=== PATIENT | male | born 1990 | race Caucasian/White ===

== ENCOUNTER 2023-07-11 17:26 | Emergency (ER) | payer OTHER, SELFPAY ==
[2023-07-11 17:31] VITALS: BP 140/86; PULSE 84; RESP 16; TEMP 36.4; O2SAT 99; BMI 27.2
[2023-07-11 17:54] LABS: Basophils Absolute Auto 0.1 10^3/uL (0.0-0.1); Basophils Percent Auto 0.8 % (0.2-2.0); Eosinophils Percent Auto 0.1 % (0.9-7.0); Hematocrit 49.2 % (42.0-54.0); Hemoglobin 17.3 g/dL (14.0-18.0); Immature Granulocytes Pct Auto 0.7 % (0.0-0.5); Lymphocytes Absolute Auto 1.3 10^3/uL (1.2-3.8); Lymphocytes Percent Auto 9.3 % (20.5-60.0); Mean Corpuscular HGB Conc 35.2 g/dL (29.9-35.2); Mean Corpuscular Hemoglobin 31.6 pg (25.9-34.0); Mean Corpuscular Volume 89.9 fL (80.0-94.0); Mean Platelet Volume 10.4 fL (9.5-13.5); Monocytes Absolute Auto 0.6 10^3/uL (0.3-0.8); Neutrophils Absolute Auto 12.2 10^3/uL (1.4-6.5); Neutrophils Percent Auto 85.1 % (43.0-75.0); Platelet Count 392 10^3/uL (150-450); Red Blood Count 5.47 10^6/uL (4.70-6.10); Red Cell Distribution Width 12.7 % (11.0-15.0); White Blood Count 14.3 10^3/uL (4.0-11.0)
[2023-07-11] MEDS: 0.9 % SODIUM CHLORIDE 1,000 ML 999 ML IV (17:55)
[2023-07-11] MEDS: ONDANSETRON PF 4 MG/2 ML VIAL IV (17:59)
--- NOTE | 2023-07-11 18:14 | CT_ITS ---
The [address] [address] Patient Name: RAMEZ MCDOWELL MRN: [id number] date: 1990 Sex: M Assigned Patient Location: ER Current Patient Location: ER Accession/Order Number: [id number] Exam Date: 07/11/2023 18:36 Report Date: 07/11/2023 20:08 At the request of: ASYA LA Procedure: CT abdomen pelvis w con EXAM: CT abdomen pelvis w con, 07/11/2023 HISTORY: midline abdominal pain w vomiting COMPARISON: None. TECHNIQUE: Contrast CT scan of the abdomen and pelvis was performed following intravenous injection of iodine contrast. Dose reduction techniques were achieved by using automated exposure control and/or adjustment of mA and/or kV according to patient size and/or use of iterative reconstruction technique. FINDINGS: Mild hepatic steatosis without focal lesion. Patent portal venous system. The gallbladder and bile ducts are unremarkable. The spleen, pancreas and both adrenal glands are unremarkable. Uniform enhancement of both kidneys without focal lesion. No hydronephrosis or hydroureter. The urinary bladder is unremarkable. Prostate gland is not enlarged. No bowel loop dilatation or bowel wall thickening. Few diverticula are seen in the colon without evidence of diverticulitis. Unremarkable appendix. No free fluid in the peritoneal cavity. No abdominal or pelvic lymphadenopathy. Unremarkable abdominal aorta and IVC. Unremarkable osseous structures. Scans through the lung bases are clear. CT/CT abdomen pelvis w con IMPRESSION: 1. No acute findings in the abdomen or pelvis. 2. Mild hepatic steatosis. 3. Mild colonic diverticulosis without diverticulitis. Electronically authenticated by: DONOVAN BARFIELD Date: 07/11/2023 20:08
--- NOTE | 2023-07-11 18:14 | ED_ITS ---
HPI - Nausea/Vomiting/Diarrhea General Chief complaint: Nausea/Vomiting/Diarrhea Stated complaint: VOMITING Time Seen by Provider: 07/11/23 17:46 Source: patient Mode of arrival: walk-in History of Present Illness HPI Narrative: patient developed midline abdominal pain 3 days ago and this morning developed nausea and vomiting with a small amount of liquid stool. Pain is non-radiating and localized to the midline from epigastrium to suprapubic area. No flank pain or back pain. He previously had rectal bleeding and had an ED evaluation but did not follow up for colonoscopy, which was recommended. Related Data Home Medications Medication Instructions Recorded Confirmed bupropion HCl 150 mg 24 hr tablet, 150 mg PO DAILY 07/11/23 07/11/23 extended release Allergies Allergy/AdvReac Type Severity Reaction Status Date / Time No Known Drug Allergies Allergy Verified 07/11/23 17:31 Exam Narrative Exam Narrative: Nurses notes and vital signs reviewed and patient is not hypoxic. afebrile General: Well-appearing and in no apparent distress. Skin: Warm, dry, no pallor noted. No rash. Head: Normocephalic, atraumatic. Eye: Pupils are equal, round and EOMI. No scleral icterus. Cardiovascular: Regular Rate and Rhythm without murmur, gallop or rub. Respiratory: No accessory muscle use or respiratory distress. Lungs are clear to auscultation, no wheezing, rales or rhonchi Back: No CVA tenderness Musculoskeletal: normal ROM GI: Abdomen is soft, non-distended. Normal bowel sounds. Epigastric, umbilical and suprapubic tenderness to palpation. No rebound, guarding, or rigidity noted. Neurological: A&O x4. No cranial nerve dysfunction observed. No truncal ataxia. Moves all extremities. Sensation intact. Psychiatric: Cooperative and interactive. Normal mood and affect. Constitutional Vital Signs, click to edit/add: Last Vital Signs Temp 97.6 F 07/11/23 17:31 Pulse 84 07/11/23 17:31 Resp 16 07/11/23 17:31 BP 140/86 07/11/23 17:31 Pulse Ox 99 07/11/23 17:31 Course Vital Signs Vital signs: Vital Signs Temperature 97.6 F 07/11/23 17:31 Pulse Rate 84 07/11/23 17:31 Respiratory Rate 16 07/11/23 17:31 Blood Pressure 140/86 07/11/23 17:31 Pulse Oximetry 99 07/11/23 17:31 Temperature 97.6 F 07/11/23 17:31 Pulse Rate 84 07/11/23 17:31 Respiratory Rate 16 07/11/23 17:31 Blood Pressure 140/86 07/11/23 17:31 Pulse Oximetry 99 07/11/23 17:31 MDM - Nausea/Vomiting/Diarrhea MDM Narrative Medical decision making narrative: peripheral IV established and blood drawn and sent for testing. Patient received normal saline IV fluid and IV Zofran. Also ordered that any diarrhea that he produced while in the ED be sent for testing. He was also sent for CT scanning of the abdomen and pelvis with contrast due to 3 days of midline abdominal pain. WBC 14k. CMP unremarkable. Lipase negative. CT scan pending. Patient signed out to Dr Madrid at 7pm shift change to review the radiologist's CT report and determine disposition for the patient. Lab Data Labs: Lab Results 07/11/23 07/11/23 Range/Units 17:35 18:03 WBC 14.3 H (4.0-11.0) 10^3/uL RBC 5.47 (4.70-6.10) 10^6/uL Hgb 17.3 (14.0-18.0) g/dL Hct 49.2 (42.0-54.0) % MCV 89.9 (80.0-94.0) fL MCH 31.6 (25.9-34.0) pg MCHC 35.2 (29.9-35.2) g/dL RDW 12.7 (11.0-15.0) % Plt Count 392 (150-450) 10^3/uL MPV 10.4 (9.5-13.5) fL Neut % (Auto) 85.1 H (43.0-75.0) % Lymph % (Auto) 9.3 L (20.5-60.0) % [place] % (Auto) 4.0 (1.7-12.0) % Eos % (Auto) 0.1 L (0.9-7.0) % Baso % (Auto) 0.8 (0.2-2.0) % Neut # (Auto) 12.2 H (1.4-6.5) 10^3/uL Lymph # (Auto) 1.3 (1.2-3.8) 10^3/uL [place] # (Auto) 0.6 (0.3-0.8) 10^3/uL Eos # (Auto) 0.0 (0.0-0.7) 10^3/uL Baso # (Auto) 0.1 (0.0-0.1) 10^3/uL Abs Immat Gran (auto) 0.10 H (0.00-0.03) 10^3/uL Imm/Tot Granulo (auto) 0.7 H (0.0-0.5) % Sodium 141 (136-145) mmol/L Potassium 4.0 (3.5-5.1) mmol/L Chloride 103 (98-107) mmol/L Carbon Dioxide 23.4 (21.0-32.0) mmol/L Anion Gap 18.6 BUN 12.0 (7.0-18.0) mg/dL Creatinine 1.03 (0.70-1.30) mg/dL Est GFR ( Amer) >60 (>=60) Est GFR (Non-Af Amer) >60 (>=60) BUN/Creatinine Ratio 11.7 Glucose 95 (74-106) mg/dL Calcium 9.4 (8.5-10.1) mg/dL Total Bilirubin 0.4 (0.2-1.0) mg/dL AST 17 (15-37) U/L ALT 36 (16-63) U/L Alkaline Phosphatase 94 (46-116) U/L Total Protein 8.2 (6.4-8.2) g/dL Albumin 4.4 (3.4-5.0) g/dL Globulin 3.8 g/dL Albumin/Globulin Ratio 1.2 Lipase 25.0 L (73.0-393.0) U/L Discharge Plan Discharge Chief Complaint: Nausea/Vomiting/Diarrhea Clinical Impression: Vomiting and diarrhea, Abdominal pain Patient Disposition: Still a Patient Prescriptions / Home Meds: No Action bupropion HCl 150 mg tablet extended release 24 hr 150 mg PO DAILY Referrals: Norberto Abraham MD [Primary Care Provider] - 1 week
[2023-07-11 18:22] LABS: Alanine Aminotransferase 36 U/L (16-63); Albumin Globulin Ratio 1.2; Albumin Level 4.4 g/dL (3.4-5.0); Alkaline Phosphatase 94 U/L (46-116); Anion Gap 18.6; Aspartate Amino Transferase 17 U/L (15-37); BUN Creatinine Ratio 11.7; Bilirubin Total 0.4 mg/dL (0.2-1.0); Calcium 9.4 mg/dL (8.5-10.1); Carbon Dioxide 23.4 mmol/L (21.0-32.0); Chloride 103 mmol/L (98-107); Estimated GFR (African America >60 (>=60); Estimated GFR (Non-African Ame >60 (>=60); Globulin 3.8 g/dL; Glucose 95 mg/dL (74-106); Sodium 141 mmol/L (136-145); Total Protein 8.2 g/dL (6.4-8.2)
[2023-07-11] MEDS: HYOSCYAMINE SULFATE 0.125 MG TAB.SUBL SL (18:56)
[2023-07-11] MEDS: KETOROLAC TROMETHAMINE 30 MG/ML VIAL IVP (20:32)
[2023-07-11 21:20] VITALS: BP 136/94; PULSE 67; RESP 16; O2SAT 98
== END 2023-07-11 21:22 | disposition home or self-care (01) ==
PROVIDERS: Emergency Provider Emergency Medicine; PCP Family Medicine
DX: R10.9 Unspecified abdominal pain (principal); R19.7 Diarrhea, unspecified; R11.10 Vomiting, unspecified
CPT/HCPCS: 36415; 74177; 80053; 83690; 85025; 87507; 96361; 96374; 96375; 99285; Q9967

== ENCOUNTER 2023-08-03 08:39 | Outpatient (OUT) | payer OTHER, SELFPAY | END 2023-08-03 08:40 | disposition home or self-care (01) | LOC: PST 08:39 | PROVIDERS: PCP Family Medicine; Visit Provider Surgery | DX: Z01.818 Encounter for other preprocedural examination (principal); K62.5 Hemorrhage of anus and rectum; R10.13 Epigastric pain ==

== ENCOUNTER 2023-08-05 09:20 | Day surgery (SDC) | payer OTHER, SELFPAY ==
--- NOTE | 2023-08-05 | OP_ITS ---
OPERATION DATE: ??08/05/2023 PREOPERATIVE DIAGNOSIS:? Epigastric abdominal pain, nausea and vomiting, diarrhea, rectal bleeding. POSTOPERATIVE DIAGNOSIS: Antral gastritis, rectal polyp. PROCEDURE:? EGD with antral biopsy x2 and colonoscopy to cecum with random sigmoid biopsies as well as cold forceps polypectomy x1 for rectal polyp. SURGEON:? Gage Gregorio M.D. ANESTHESIA:? Monitored anesthesia care. ESTIMATED BLOOD LOSS:? Less than 1 mL. INDICATIONS AND CONSENT:? Patient is a 32-year-old male with history of epigastric pain, intermittent nausea, vomiting, loose stools, as well as blood in the stools.? Indications, risks, benefits, alternatives of proceeding with EGD and colonoscopy were explained extensively to the patient, including the risks of bleeding, aspiration, esophageal/gastric/duodenal or colonic perforation or anesthetic complications. ?All of his questions were answered.? Informed consent was obtained. PROCEDURE:? Patient brought to the operating room, placed in the left lateral decubitus position.? Monitored anesthesia care was provided.? Bite block was placed in the patient?s mouth.? Scope was inserted into the oropharynx.? Under direct visualization, it was advanced into the esophagus, past the cricopharyngeus, down to the stomach.? The stomach was insufflated with air.? The pylorus was traversed down to the descending portion of the duodenum.? There was no evidence of duodenitis or ulceration.? There was no scarring within the pyloric channel.?? Scope was pulled back into the stomach.? There was noted to be antral gastritis with some superficial irritation.? There was minimal oozing, no active bleeding.? The scope was retroflexed.? There was no significant hiatal hernia.? Multiple biopsies were obtained of the antrum with cold biopsy forceps with good hemostasis.? The GE junction was noted at approximately 40 cm.? There was no distal esophagitis or Mendoza?s changes. Remainder of the esophagus was unremarkable.? The scope was then withdrawn. ?Patient was then positioned for colonoscopy.? Rectal exam was performed, which showed no masses or blood.? The scope was then inserted into the anal canal.? Under direct visualization, it was advanced to the cecum where cecal markings were clearly identified.? There was noted to be a good prep.? Upon withdrawal of the scope, mucosal surfaces were carefully examined.? There were no mass lesions or polyps.? No inflammatory changes or ulcerations.? No significant diverticulosis.? Random biopsies were obtained of the sigmoid colon with the cold biopsy forceps due to the loose stools.? Within the rectum, there was noted to be a 3 mm sessile polyp that was removed with cold biopsy forceps with good hemostasis.? There was no significant hemorrhoidal disease.? The scope was then withdrawn.? The patient tolerated procedure well, was sent to recovery room in good condition. f/u colonoscopy will depend on pathology results. HELEN
[2023-08-05 09:31] VITALS: BP 150/92; PULSE 98; RESP 18; TEMP 36.2; O2SAT 98; BMI 29.3
[2023-08-05] MEDS: LACTATED RINGER'S SOLUTION 1,000 ML 50 ML IV (09:35)
[2023-08-05 11:36] VITALS: BP 106/66; PULSE 83; RESP 16; TEMP 36.3; O2SAT 99
[2023-08-05 11:50] VITALS: BP 126/93; PULSE 78; RESP 16; O2SAT 99
[2023-08-05 12:04] VITALS: BP 112/78; PULSE 78; RESP 16; O2SAT 100
== END 2023-08-05 12:06 | disposition home or self-care (01) ==
PROVIDERS: PCP Family Medicine; Visit Provider Surgery
PROC: (CPT 813; principal; 2023-08-05 10:30)
DX: K62.5 Hemorrhage of anus and rectum (principal); R10.13 Epigastric pain; K29.50 Unspecified chronic gastritis without bleeding; K62.1 Rectal polyp; E66.3 Overweight; Z68.29 Body mass index [BMI] 29.0-29.9, adult; F17.210 Nicotine dependence, cigarettes, uncomplicated; R11.2 Nausea with vomiting, unspecified; R19.7 Diarrhea, unspecified
CPT/HCPCS: 43239; 45380; 88305; 88342; J2704

== ENCOUNTER 2023-11-12 16:32 | Outpatient (OUT) | payer SELFPAY ==
[2023-11-12 17:51] LABS: Basophils Absolute Auto 0.1 10^3/uL (0.0-0.1); Basophils Percent Auto 0.4 % (0.2-2.0); Eosinophils Absolute Auto 0.2 10^3/uL (0.0-0.7); Eosinophils Percent Auto 1.6 % (0.9-7.0); Hematocrit 42.8 % (42.0-54.0); Hemoglobin 14.4 g/dL (14.0-18.0); Immature Granulocytes Abs Auto 0.07 10^3/uL (0.00-0.03); Immature Granulocytes Pct Auto 0.5 % (0.0-0.5); Lymphocytes Absolute Auto 2.4 10^3/uL (1.2-3.8); Lymphocytes Percent Auto 17.3 % (20.5-60.0); Mean Corpuscular HGB Conc 33.6 g/dL (29.9-35.2); Mean Corpuscular Hemoglobin 30.6 pg (25.9-34.0); Mean Corpuscular Volume 91.1 fL (80.0-94.0); Mean Platelet Volume 10.9 fL (9.5-13.5); Monocytes Absolute Auto 1.1 10^3/uL (0.3-0.8); Monocytes Percent Auto 7.9 % (1.7-12.0); Neutrophils Absolute Auto 10.1 10^3/uL (1.4-6.5); Neutrophils Percent Auto 72.3 % (43.0-75.0); Platelet Count 396 10^3/uL (150-450); Red Cell Distribution Width 12.7 % (11.0-15.0); White Blood Count 13.9 10^3/uL (4.0-11.0)
[2023-11-12 17:59] LABS: Partial Thromboplastin Time 26.5 sec (22.3-36.2); Prothrombin Time 9.8 sec (9.0-11.6)
[2023-11-12 18:02] LABS: Erythrocyte Sedimentation Rate 29 mm/hr (<=15)
[2023-11-12 18:03] LABS: INR <0.93
== END 2023-11-12 16:33 | disposition home or self-care (01) ==
PROVIDERS: PCP Family Medicine; Visit Provider Family Medicine
DX: K92.1 Melena (principal)
CPT/HCPCS: 36415; 85025; 85610; 85652; 85730

== ENCOUNTER 2024-10-13 11:20 | Outpatient (OUT) | payer OTHER, SELFPAY ==
--- NOTE | 2024-10-13 11:27 | XR_ITS ---
The [address] [address] Patient Name: RAMEZ MCDOWELL MRN: [id number] date: 1990 Sex: M Assigned Patient Location: LAB Current Patient Location: Accession/Order Number: [id number] Exam Date: 10/13/2024 11:34 Report Date: 10/14/2024 05:48 At the request of: GAIL LOWE Procedure: XR hand RT min 3V PROCEDURE: XR hand RT min 3V, XR wrist RT min 3V HISTORY: Right Hand Pain ; chronic right hand and wrist pain COMPARISON: XR hand right 08/03/2018 FINDINGS: BONES:No fracture, acute abnormality, or significant arthropathy. SOFT TISSUES:No visible soft tissue swelling. EFFUSION:None visible. OTHER: Negative. XR/XR hand RT min 3V IMPRESSION: 1. No acute bone abnormality or significant degenerative changes to account for patient's symptoms. Electronically authenticated by: RACHEL SHOOK Date: 10/14/2024 05:48
--- NOTE | 2024-10-13 11:27 | XR_ITS ---
The [address] [address] Patient Name: RAMEZ MCDOWELL MRN: [id number] date: 1990 Sex: M Assigned Patient Location: LAB Current Patient Location: Accession/Order Number: [id number] Exam Date: 10/13/2024 11:34 Report Date: 10/14/2024 05:48 At the request of: GAIL LOWE Procedure: XR wrist RT min 3V PROCEDURE: XR hand RT min 3V, XR wrist RT min 3V HISTORY: Right Hand Pain ; chronic right hand and wrist pain COMPARISON: XR hand right 08/03/2018 FINDINGS: BONES:No fracture, acute abnormality, or significant arthropathy. SOFT TISSUES:No visible soft tissue swelling. EFFUSION:None visible. OTHER: Negative. XR/XR wrist RT min 3V IMPRESSION: 1. No acute bone abnormality or significant degenerative changes to account for patient's symptoms. Electronically authenticated by: RACHEL SHOOK Date: 10/14/2024 05:48
--- OUTSIDE RECORDS SUMMARY | 2024-10-13 11:45 | XMS_ITS | CCD ---
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 Name Role Phone MISC, DR BAÑUELOS Primary Care Unavailable RADHA ., CATALINO Admitting Unavailable RADHA ., CATALINO Attending Unavailable JUANITO ., ALEJANDRO BENAVIDES Consulting UnavailPRINCE Ramos Consulting Unavailable HOY ., DR REYNOLDS Admitting Unavailable HOY ., DR REYNOLDS Attending Unavailable MISC, DR BAÑUELOS Primary Care Unavailable HOY ., DR REYNOLDS Consulting Unavailable NILL, Gage Richardson Attending Unavailable Hoy, Gail Referring Unavailable NILL, Gage Richardson Attending Unavailable Hoy, Gail Referring Unavailable NILL, Gage R Attending Unavailable NILL, Gage R Attending Unavailable NILL, Gage Richardson Attending Unavailable NILL, Gage Richardson Attending Unavailable Hoy, Gail Referring Unavailable NILL, Gage Richardson Attending Unavailable Allergies Allergy Classification Reported Allergen(s) Allergy Type Date of Onset Reaction(s) Facility (1 source) No Known Medication Allergies; Translations: [No Known Medication Allergies] Propensity to adverse reactions (disorder) [facility] Repository Problems Active Problems Problem Classification Problem Date Documented Da te Episodic/Chronic Headache; including migraine (1 source) Headache; including migraine; Translations: [HEADACHE UNSPECIFIED] Onset: 06-09-2022 Substance-related disorders (1 source) Nicotine dependence, cigarettes, uncomplicated; Translations: [NICOTINE DEPEND CIGARETTES UNCOMP] Onset: 06-09-2022 Chronic Unclassified (1 source) CONTACT W/AND (SUSP) EXPOS COVID-19; Translations: [CONTACT W/AND (SUSP) EXPOS COVID-19] Onset: 06-09-2022 Past or Other Problems Problem Classification Problem Date Documented Da te Episodic/Chronic Conditions associated with dizziness or vertigo (1 source) Dizziness and giddiness; Translations: [DIZZINESS AND GIDDINESS] Onset: 06-09-2022 Episodic Fever of unknown origin (4 sources) Fever, unspecified; Translations: [FEVER UNSPECIFIED] Onset: 06-05-2022 Episodic Nonspecific chest pain (1 source) Chest pain, unspecified; Translations: [CHEST PAIN UNSPECIFIED] Onset: 06-09-2022 Episodic Other aftercare (1 source) Other senior care (current) drug therapy; Translations: [OTH GROUP HOME CURRENT DRUG THERAPY] Onset: 06-09-2022 Episodic Other gastrointestinal disorders (1 source) Diarrhea, unspecified; Translations: [DIARRHEA UNSPECIFIED] Onset: 06-09-2022 Episodic Other lower respiratory disease (1 source) Shortness of breath; Translations: [SHORTNESS OF BREATH] Onset: 06-09-2022 Episodic Other upper respiratory infections (2 sources) Acute upper respiratory infection, unspecified; Translations: [Acute pharyngitis, unspecified] Onset: 06-09-2022 Episodic Syncope (1 source) Syncope and collapse; Translations: [SYNCOPE AND COLLAPSE] Onset: 06-09-2022 Episodic Results Test Name Value Interpretation Reference Range Facility Pathology Noteon 08-12-2023 Pathology Note [id number] #1.00CD:127 [facility] Outside Colonoscopyon 2022 Outside Colonoscopy [id number] #1.00CD:127 [facility] Insurance Correspondenceon 0 07-21-2023 Insurance Correspondence [id number]#1.00CD:127 [facility] Consent for Procedure/Surger yon 07-20-2023 Consent for Procedure/Surgery [id number] #1.00CD:127 [facility] Facesheeton 07-20-2023 Facesheet [id number]#1.00CD:127 [facility] Ambulatory Visit Summaryon 0 07-17-2023 Ambulatory Visit Summary RAMEZ MCDOWELL :1990 Visit Date:07/17/2023 Ambulatory Visit Instructions Your Diagnosis Rectal bleeding Your Care Team Attending Physician - ANTONIETTA GARDUNO, Gage Richardson Primary Care Physician - Gail Lowe MD Referring Physician - Gail Lowe MD This Is Your Medications List Contact prescribing physician if questions or concerns albuterol (Ventolin HFA 90 mcg/inh Aerosol-Adpt) Procedures Performed None. Discharge Vitals Heart Rate (Peripheral) 72 Respiratory Rate 16 Blood Pressure 136/98 Height 177.8 cm Height 70 in Weight 93.4 kg Weight 205.48 lb BMI 29.54 Medications What How Much When Instructions Unchanged albuterol (Ventolin HFA 90 mcg/ inh Aerosol-Adpt) 2 Puffs Inhalation Every 4 hours as needed for Shortness of breath or wheezing Contact prescribing physician if questions or concerns Allergies No Known Allergies No Known Medication Allergies Problems Ongoing - Any problem that you are currently receiving treatment for. BMI 29.0-29.9,adult Over weight Rectal bleeding Tobacco user Normal [facility] ED Note-Physicianon 07-15-20 ED Note-Physician [id number]# 1.00CD:127 Normal [facility] RAD - CT Reporton 07-15-2023 RAD - CT Report [id number] #1.00CD:127 Normal [facility] CBC AUTO DIFFon 03-21-2023 BASO # 0.1 103/ul Normal 0.0-0.1 [facility] Comment on above: Performed By: #### C BC ####[facility] [address] [place] [address]DrRobbin Beltran Basophils/100 WBC (Bld) 0.9 % Normal 0.2-2.0 [facility] Comment on above: Performed By: #### C BC ####[facility] [address] [place] [address]DrRobbin Beltran EO # 0.2 103/ul Normal 0.0-0.7 [facility] Comment on above: Performed By: #### C BC ####[facility] [address] [place] [address]DrRobbin Beltran Eosinophils/100 WBC (Bld) 2.4 % Normal 0.9-7.0 [facility] Comment on above: Performed By: #### C BC ####[facility] [address] [place], [place] [address]Dr. Paola Devin Erythrocyte distribution width (RBC) [Ratio] 12.8 % Normal 11.0-15.0 [facility] Comment on above: Performed By: #### C BC ####[facility] [address] [place], [place] [address]Dr. Paola Beltran Hematocrit (Bld) [Volume fraction] 48.5 % Normal 42.0-54.0 [facility] Comment on above: Performed By: #### C BC ####[facility] [address] [place], [place] [address]Dr. Paola Beltran Hemoglobin (Bld) [Mass/Vol] 16.4 g/dL Normal 14.0-18.0 [facility] Comment on above: Performed By: #### C BC ####[facility] [address] [place], [place] [address]Dr. aPola Devin IG # 0.03 10e3/ul Normal 0.00-0.03 [facility] Comment on above: Performed By: #### C BC ####[facility] [address] [place], [place] [address]Dr. Paola Beltran IG % 0.4 % Normal 0.0-0.5 [facility] Comment on above: Performed By: #### C BC ####[facility] [address] [place], [place] [address]Dr. Paola Beltran LYMPH # 1.5 103/ul Normal 1.2-3.8 [facility] Comment on above: Performed By: #### C BC ####[facility] [address] [place], [place] [address]Dr. Paola Beltran Lymphocytes/100 WBC (Bld) 21.8 % Normal 20.5-60.0 [facility] Comment on above: Performed By: #### C BC ####[facility] [address] [place], [place] [address]DrRobbin Beltran MANUAL DIFF REQ NO Normal [facility] Comment on above: Performed By: #### C BC ####[facility] [address] [place] [address]Dr. Paola Beltran MCH (RBC) [Entitic mass] 30.9 pg Normal 25.9-34.0 [facility] Comment on above: Performed By: #### C BC ####[facility] [address] [place] [address]Dr. Paola Beltran MCHC (RBC) [Mass/Vol] 33.8 g/dL Normal 29.9-35.2 [facility] Comment on above: Performed By: #### C BC ####[facility] [address] [place], [place] [address]DrRobbin Beltran MCV (RBC) [Entitic vol] 91.5 fL Normal 80.0-94.0 [facility] Comment on above: Performed By: #### C BC ####[facility] [address] [place], [place] [address]DrRobbin Beltran MONO # 0.6 103/ul Normal 0.3-0.8 [facility] Comment on above: Performed By: #### C BC ####[facility] [address] [place], [place] [address]DrRobbin Beltran Monocytes/100 WBC (Bld) 9.1 % Normal 1.7-12.0 [facility] Comment on above: Performed By: #### C BC ####[facility] [address] [place], [place] [address]DrRobbin Beltran NEUT # 4.4 103/ul Normal 1.4-6.5 [facility] Comment on above: Performed By: #### C BC ####[facility] [address] [place], [place] [address]DrRobbin Beltran Neutrophils/100 WBC (Bld) 65.4 % Normal 43.0-75.0 [facility] Comment on above: Performed By: #### C BC ####[facility] [address] [place], [place] [address]DrRobbin Beltran Platelet mean volume (Bld) [Entitic vol] 9.8 fL Normal 9.5-13.5 [facility] Comment on above: Performed By: #### C BC ####[facility] [address] [place] [id number]. Paola Beltran PLT 280 103/ul Normal 150-450 [facility] Comment on above: Performed By: #### C BC ####[facility] [address] [place] [id number]. Paola Beltran RBC 5.30 106/ul Normal 4.70-6.10 [facility] Comment on above: Performed By: #### C BC ####[facility] [address] [place] [address]Dr. Paola Beltran WBC 6.7 103/ul Normal 4.0-11.0 [facility] Comment on above: Performed By: #### C BC ####[facility] [address] [place] [address]Dr. Paola Beltran FREE T3on 03-21-2023 FREE T3 2.82 pg/mlL Normal 2.18-3.98 [facility] Comment on above: Performed By: #### L IPID, CMP, T4, FT3, TSH ####[facility] [address] [place] [address]Dr. Paola Beltran GLYCOHEMOGLOBIN A1Con 2022 ADA RECOMMENDATION SEE BELOW Normal The [facility] Comment on above: Result Comment: ADA RECOMMENDED LIMIT 4.0 - 6.0 ADA THERAPEUTIC TARGET < 7.0 ACTION SUGGESTED > 7.0 Performed By: #### A 1C ####[facility] [address] [place] [address]Dr. Paola Beltran Glucose [Mass/Vol] 103 mg/dL Normal [facility] Comment on above: Performed By: #### A 1C ####[facility] [address] [place] [address]Dr. Paola Beltran HbA1c (Bld) [Mass fraction] 5.2 % Normal 4.5-6.2 [facility] Comment on above: Performed By: #### A 1C ####[facility] [address] [place], [place] [address]Dr. Paola Beltran LIPID PROFILEon 03-21-2023 CHOL-HDL RATIO NORM SEE BELOW Normal [facility] Comment on above: Result Comment: 3.3 - 4.4 LOW RISK 4.4 - 7.1 AVERAGE RISK 7.1 - 11.0 MODERATE RISK >11.0 HIGH RISK Performed By: #### L IPID, CMP, T4, FT3, TSH #### [facility] [address] [address] [address] Paola Beltran Cholesterol [Mass/Vol] 220 mg/dL Critically high <=200 [facility] Comment on above: Performed By: #### L IPID, CMP, T4, FT3, TSH #### [facility] [address] [address] [address] Paola Beltran Cholesterol in HDL [Mass/Vol] 42 mg/dL Normal 40-60 [facility] Comment on above: Performed By: #### L IPID, CMP, T4, FT3, TSH #### [facility] [address] [address] [address] Paola Beltran Cholesterol in LDL [Mass/Vol] 138.6 mg/dL Normal [facility] Comment on above: Performed By: #### L IPID, CMP, T4, FT3, TSH #### [facility] [address] [address] [address] Paola Beltran Cholesterol.total/Chol esterol in HDL [Mass ratio] 5.2 {ratio} Normal [facility] Comment on above: Performed By: #### L IPID, CMP, T4, FT3, TSH #### [facility] [address] [address] [address] Paola Beltran HDL NORMAL > or = 60 mg/dl - LOW CARDIOVASCULAR RISK <40 mg/dl - HIGH CARDIOVASCULAR RISK Normal [facility] Comment on above: Performed By: #### L IPID, CMP, T4, FT3, TSH #### [facility] [address] [address] [address] Paola Beltran LDL CALC NORMAL SEE BELOW Normal [facility] Comment on above: Result Comment: <100 mg/dl OPTIMAL 100 - 129 mg/dl NEAR OR ABOVE OPTIMAL 130 - 159 mg/dl BORDERLINE HIGH 160 - 189 mg/dl HIGH >190 mg/dl VERY HIGH Performed By: #### L IPID, CMP, T4, FT3, TSH #### [facility] [address] [address] [address] Paola Beltran Triglyceride [Mass/Vol] 197 mg/dL Critically high <=150 [facility] Comment on above: Performed By: #### L IPID, CMP, T4, FT3, TSH #### [facility] [address] [address] [address] Paola Beltran VLDL CALC 39.4 mg/dL Normal [facility] Comment on above: Performed By: #### L IPID, CMP, T4, FT3, TSH #### [facility] [address] [place] [address] Dr. Paola Beltran PROF 14(COMP METB)on 023 Albumin [Mass/Vol] 4.1 g/dL Normal 3.4-5.0 [facility] Comment on above: Performed By: #### L IPID, CMP, T4, FT3, TSH #### [facility] [address] [address] [address] Paola Beltran Albumin/Globulin [Mass ratio] 1.1 {ratio} Normal [facility] Comment on above: Performed By: #### L IPID, CMP, T4, FT3, TSH #### [facility] [address] [address] [address] Paola Beltran ALP [Catalytic activity/Vol] 107 U/L Normal 46-116 [facility] Comment on above: Performed By: #### L IPID, CMP, T4, FT3, TSH #### [facility] [address] [address] [address] Paola Beltran ALT [Catalytic activity/Vol] 48 U/L Normal 16-63 [facility] Comment on above: Performed By: #### L IPID, CMP, T4, FT3, TSH #### [facility] [address] [address] [address] Paola Beltran Anion gap [Moles/Vol] 12.3 mmol/L Normal Th e [facility] Comment on above: Performed By: #### L IPID, CMP, T4, FT3, TSH #### [facility] [address] [place] [address] Dr. Paola Beltran AST [Catalytic activity/Vol] 26 U/L Normal 15-37 [facility] Comment on above: Performed By: #### L IPID, CMP, T4, FT3, TSH #### [facility] [address] [place] [address] Dr. Paola Beltran Bilirubin [Mass/Vol] 0.2 mg/dL Normal 0.2-1.0 [facility] Comment on above: Performed By: #### L IPID, CMP, T4, FT3, TSH #### [facility] [address] [place] [address] Dr. Paola Beltran Calcium [Mass/Vol] 9.3 mg/dL Normal 8.5-10.1 [facility] Comment on above: Performed By: #### L IPID, CMP, T4, FT3, TSH #### [facility] [address] [place] [address] Dr. Paola Beltran Chloride [Moles/Vol] 106 mmol/L Normal 98-107 [facility] Comment on above: Performed By: #### L IPID, CMP, T4, FT3, TSH #### [facility] [address] [place] [address] Dr. Paola Beltran CO2 [Moles/Vol] 25.4 mmol/L Normal 21.0-32.[address] [facility] Comment on above: Performed By: #### L IPID, CMP, T4, FT3, TSH #### [facility] [address] [place] [address] Dr. Paola Beltran Creatinine [Mass/Vol] 1.01 mg/dL Normal 0.70-1.30 [facility] Comment on above: Performed By: #### L IPID, CMP, T4, FT3, TSH #### [facility] [address] [place] [address] Dr. Paola Beltran EGFR-AF CHILEAN >60 Normal >=[address] [facility] Comment on above: Performed By: #### L IPID, CMP, T4, FT3, TSH #### [facility] [address] [address] [address] Paola Beltran EGFR-NON AF CHILEAN >60 Normal >=60 [facility] Comment on above: Performed By: #### L IPID, CMP, T4, FT3, TSH #### [facility] [address] [address] [address] Paola Beltran Globulin (S) [Mass/Vol] 3.8 g/dL Normal [facility] Comment on above: Performed By: #### L IPID, CMP, T4, FT3, TSH #### [facility] [address] [address] [address] Paola Beltran Glucose [Mass/Vol] 146 mg/dL Critically high 74-106 [facility] Comment on above: Performed By: #### L IPID, CMP, T4, FT3, TSH #### [facility] [address] [address] [address] Paola Beltran Potassium [Moles/Vol] 3.7 mmol/L Normal 3.5-5.1 [facility] Comment on above: Performed By: #### L IPID, CMP, T4, FT3, TSH #### [facility] [address] [address] [address] Paola Beltran Protein [Mass/Vol] 7.9 g/dL Normal 6.4-8.2 [facility] Comment on above: Performed By: #### L IPID, CMP, T4, FT3, TSH #### [facility] [address] [address] [address] Paola Beltran Sodium [Moles/Vol] 140 mmol/L Normal 136-145 [facility] Comment on above: Performed By: #### L IPID, CMP, T4, FT3, TSH #### [facility] [address] [address] [address] Paola Beltran Urea nitrogen [Mass/Vol] 8.0 mg/dL Normal 7.0-18.0 [facility] Comment on above: Performed By: #### L IPID, CMP, T4, FT3, TSH #### [facility] [address] [place] [address] Dr. Paola Beltran Urea nitrogen/Creatinine [Mass ratio] 7.9 mg/mg Normal [facility] Comment on above: Performed By: #### L IPID, CMP, T4, FT3, TSH #### [facility] [address] [place] [address] Dr. Paola Beltran T4on 03-21-2023 T4 [Mass/Vol] 8.30 ug/dL Normal 4.50-12.10 [facility] Comment on above: Performed By: #### L IPID, CMP, T4, FT3, TSH #### [facility] [address] [place] [address] Dr. Paola Beltran TSHon 03-21-2023 TSH 1.609 uIU/mL Normal 0.358-3.740 [facility] Comment on above: Performed By: #### L IPID, CMP, T4, FT3, TSH #### [facility] [address] [place] [address] Dr. Paola Beltran Physician Referralon 023 Physician Referral [id number] #1.00CD:127 Normal [facility] CBC AUTO DIFFon 06-05-2022 BASO # 0.0 103/ul Normal 0.0-0.1 [facility] Comment on above: Performed By: #### C BC #### [facility] [address] [place] [address] Dr. Paola Beltran Basophils/100 WBC (Bld) 0.2 % Normal 0.2-2.0 [facility] Comment on above: Performed By: #### C BC #### [facility] [address] [place] [address] Dr. Paola Beltran EO # 0.0 103/ul Normal 0.0-0.7 [facility] Comment on above: Performed By: #### C BC #### [facility] [address] [place] [address] Dr. Paola Beltran Eosinophils/100 WBC (Bld) 0.3 % Critically low 0.9-7.0 [facility] Comment on above: Performed By: #### C BC #### [facility] [address] [place] [address] Dr. Paola Beltran Erythrocyte distribution width (RBC) [Ratio] 13.0 % Normal 11.0-15.0 [facility] Comment on above: Performed By: #### C BC #### [facility] [address] [place] [address] Dr. Paola Beltran Hematocrit (Bld) [Volume fraction] 45.8 % Normal 42.0-54.0 [facility] Comment on above: Performed By: #### C BC #### [facility] [address] [place] [address] Dr. Paola Beltran Hemoglobin (Bld) [Mass/Vol] 15.6 g/dL Normal 14.0-18.0 [facility] Comment on above: Performed By: #### C BC #### [facility] [address] [place] [address] Dr. Paola Beltran IG # 0.06 10e3/ul Critically high 0.00-0.03 [facility] Comment on above: Performed By: #### C BC #### [facility] [address] [place] [address] Dr. Paola Beltran IG % 0.5 % Normal 0.0-0.5 [facility] Comment on above: Performed By: #### C BC #### [facility] [address] [place] [address] Dr. Paola Beltran LYMPH # 0.9 103/ul Critically low 1.2-3.8 [facility] Comment on above: Performed By: #### C BC #### [facility] [address] [place] [address] Dr. Paola Beltran Lymphocytes/100 WBC (Bld) 7.1 % Critically low 20.5-60.0 [facility] Comment on above: Performed By: #### C BC #### [facility] [address] [place] [address] Dr. Paola Beltran MANUAL DIFF REQ NO Normal [facility] Comment on above: Performed By: #### C BC #### [facility] [address] [place] [address] Dr. Paola Beltran MCH (RBC) [Entitic mass] 31.1 pg Normal 25.9-34.0 [facility] Comment on above: Performed By: #### C BC #### [facility] [address] [place] [address] Dr. Paola Beltran MCHC (RBC) [Mass/Vol] 34.1 g/dL Normal 29.9-35.2 [facility] Comment on above: Performed By: #### C BC #### [facility] [address] [place] [address] Dr. Paola Beltran MCV (RBC) [Entitic vol] 91.4 fL Normal 80.0-94.0 [facility] Comment on above: Performed By: #### C BC #### [facility] [address] [place] [address] Dr. Paola Beltran MONO # 0.8 103/ul Normal 0.3-0.8 [facility] Comment on above: Performed By: #### C BC #### [facility] [address] [place] [address] Dr. Paola Beltran Monocytes/100 WBC (Bld) 6.6 % Normal 1.7-12.0 [facility] Comment on above: Performed By: #### C BC #### [facility] [address] [place] [address] Dr. Paola Beltran NEUT # 10.4 103/ul Critically high 1.4-6.5 [facility] Comment on above: Performed By: #### C BC #### [facility] [address] [place] [address] Dr. Paola Beltran Neutrophils/100 WBC (Bld) 85.3 % Critically high 43.0-75.0 [facility] Comment on above: Performed By: #### C BC #### [facility] [address] [place] [address] [address] [address] Paola Beltran Platelet mean volume (Bld) [Entitic vol] 10.3 fL Normal 9.5-13.5 [facility] Comment on above: Performed By: #### C BC #### [facility] [address] [address] [address] Paola Beltran PLT 223 103/ul Normal 150-450 [facility] Comment on above: Performed By: #### C BC #### [facility] [address] [place] [address] Dr. Paola Beltran RBC 5.01 106/ul Normal 4.70-6.10 [facility] Comment on above: Performed By: #### C BC #### [facility] [address] [place], [place] [id number] Dr. Paola Beltran WBC 12.2 103/ul Critically high 4.0-11.0 [facility] Comment on above: Performed By: #### C BC #### [facility] Laboratory [address] [place] [address] HEAD WO CONon 06-05-2022 CT HEAD WO CON EXAMINATION: CT HEAD WO CON HISTORY: HEADACHE COMPARISON: None. TECHNIQUE: CT examination of the head without IV contrast. Sagittal and coronal reconstructions were obtained. Dose reduction techniques were achieved by using automated exposure control and/or adjustment of mA and/or kV according to patient size and/or use of iterative reconstruction technique. FINDINGS: The ventricles are not enlarged, the lateral ventricles are symmetric and the third ventricles in the midline. The sylvian fissures and cortical sulci are unremarkable. There is no evidence of an intracranial hemorrhage, mass lesion or apparent acute infarct. The cerebellum and visualized brainstem are intact. A mucocele or cyst is seen in the anterior aspect of the sphenoid sinus on the right, and the remainder the visualized paranasal sinuses are clear. There is no evidence of a skull fracture. There is a focal lesion in the skull on the right in image 37, measuring less than 1 cm in maximum dimension, which appears benign in nature. The middle ears and mastoid sinuses are clear. IMPRESSION: There is no evidence of an intracranial hemorrhage, mass lesion or apparent acute infarct. A small mucocele or cyst is seen in the sphenoid sinuses and the visualized paranasal sinuses otherwise are relatively clear. There is no evidence of an acute fracture. There is a small bone lesion present in the skull on the right, which appears benign in nature. Comparison with a previous study would be helpful to confirm this impression. Electronically authenticated by: PRINCE BACON Date: 2022-06-05 19:50 Normal [facility] Covid-19 PCR (CVDTBH)on 05-10 SARS-CoV-2 (COVID-19) RNA KATHE+probe Ql (Unsp spec) Not detected Normal NOT DETECTED [facility] Comment on above: Result Comment: When diagnostic testing is negative, the possibility of a false negative should be considered in the context of a patient's recent exposures and the presence of clinical signs and symptoms consistent with SARS-CoV-2. This test is not yet approved or cleared by the [place] FDA. When there are no FDA-approved or cleared tests available, and other criteria are met, FDA can make tests available under an emergency access mechanism called an Emergency Use Authorization (EUA). The EUA for this test is supported by the [place] of Health and Human Service's declaration that circumstances exist to justify the emergency use of in vitro diagnostics for the detection and/or diagnosis of the virus that causes COVID-19. This EUA will remain in effect for the duration of the COVID-19 declaration justifying emergency of IVDs, unless it is terminated or revoked by the FDA (after which the test may no longer be used). Performed By: #### C VDTBH #### [facility] [address] [place], [place] [address] Dr. Paola Beltran INFLUENZA A AND B AGon 06-05 INFLUENZA A AG Negative Normal NEGATIVE SEE COMMENT [facility] Comment on above: Performed By: #### I NFLUAB ####[facility] [id number] [place] [id number]. Paola Beltran INFLUENZA B AG Negative Normal NEGATIVE SEE COMMENT [facility] Comment on above: Performed By: #### I NFLUAB ####[facility] [id number] [place], [place] [id number]. Paola Beltran INFLUPOSH SEE BELOW Normal [facility] Comment on above: Result Comment: NOTE : Live attenuated influenzae vaccine viruses can cause a positive result for a rapid influenza diagnostic test if administered up to 7 days prior to rapid testing. Performed By: #### I NFLUAB ####[facility] [id number] [place] [address]DrRobbin Beltran INFLUPOSHB SEE BELOW Normal [facility] Comment on above: Result Comment: NOTE : Live attenuated influenzae vaccine viruses can cause a positive result for a rapid influenza diagnostic test if administered up to 7 days prior to rapid testing. Performed By: #### I NFLUAB ####[facility] [address] [place] [address]DrRobbin Beltran INTERNAL CONTROLS Within Normal Limits Normal Wi thin Normal Limits [facility] Comment on above: Performed By: #### I NFLUAB ####[facility] [id number] [place] [address]DrRobbin Beltran PROF CHEM 8 (BAS METB)on Anion gap [Moles/Vol] 11.4 mmol/L Normal [facility] Comment on above: Performed By: #### H JIN, BMP #### [facility] [address] [place] [address] [address] Paola Beltran Calcium [Mass/Vol] 8.9 mg/dL Normal 8.5-10.1 [facility] Comment on above: Performed By: #### H EMILIEPN, BMP #### [facility] [address] [place] [address] [address] Paola Beltran Chloride [Moles/Vol] 102 mmol/L Normal 98-107 [facility] Comment on above: Performed By: #### H EMILIEPN, BMP #### [facility] [address] [place] [address] [address] Paola Beltran CO2 [Moles/Vol] 28.1 mmol/L Normal 21.0-32.[address] [facility] Comment on above: Performed By: #### H STROPN, BMP #### [facility] [address] [place] [address] [address] Paola Beltran Creatinine [Mass/Vol] 1.07 mg/dL Normal 0.70-1.30 [facility] Comment on above: Performed By: #### H STROPN, BMP #### [facility] [address] [place] [address] [address] Paola Beltran EGFR-AF CHILEAN >60 Normal >=[address] [facility] Comment on above: Performed By: #### H STROPN, BMP #### [facility] [address] [place] [address] [address] Paola Beltran EGFR-NON AF CHILEAN >60 Normal >=60 [facility] Comment on above: Performed By: #### H STROPN, BMP #### [facility] [address] [place] [address] [address] Paola Beltran Glucose [Mass/Vol] 111 mg/dL Critically high 74-106 [facility] Comment on above: Performed By: #### H STROPN, BMP #### [facility] [address] [place] [address] [address] Paola Beltran Potassium [Moles/Vol] 3.5 mmol/L Normal 3.5-5.1 [facility] Comment on above: Performed By: #### H STROPN, BMP #### [facility] [address] [place] [address] [address] Paola Beltran Sodium [Moles/Vol] 138 mmol/L Normal 136-145 [facility] Comment on above: Performed By: #### H STROPN, BMP #### [facility] [address] [place] [address] [address] Paola Beltran Urea nitrogen [Mass/Vol] 8.0 mg/dL Normal 7.0-18.0 [facility] Comment on above: Performed By: #### H STROPN, BMP #### [facility] [address] [place] [address] [address] Paola Beltran Urea nitrogen/Creatinine [Mass ratio] 7.5 mg/mg Normal [facility] Comment on above: Performed By: #### H STROPN, BMP #### [facility] [address] [place] [address] [address] Paola Beltran TROPONIN, HIGH SENSITIVITYon 06-05-2022 HSTROP <4.0 Normal 4.0-76.1 [facility] Comment on above: Result Comment: CUT- OFF POINTS HAVE BEEN ESTABLISHED BASED ON THE FOURTH UNIVERSAL DEFINITIONS OF MYOCARDIAL INFARCTION. THE UPPER REFERENCE LIMIT (URL) OF TROPONIN, DEFINED THE 99TH PERCENTILE OF cTnI DISTRIBUTION IN A REFERENCE POPULATION, HAS BEEN CONFIRMED THE DECISION THRESHOLD FOR [place] DIAGNOSIS. Performed By: #### H JIN, BMP #### [facility] [address] [place] [id number] [address] Paola Beltran XR CHEST 1 Von 06-05-2022 XR CHEST 1 V EXAM: XR CHEST 1 V at 1856 hours HISTORY: SHORTNESS OF BREATH COMPARISON: 12/26/2021 TECHNIQUE: AP upright portable chest x-ray FINDINGS: The heart is not enlarged and the vasculature is not distended. No acute infiltrate, effusion or pneumothorax is identified. The osseous structures are intact. IMPRESSION: No acute infiltrate or evidence of cardiac decompensation. The overall appearance of the chest is unchanged. Electronically authenticated by: PRINCE BACON Date: 2022-06-05 19:51 Normal [facility] Encounters Encounter Date Encounter Type Care Provider Facility Start: 08-26-2023 ambulatory Gage R ANTONIETTA Facility :[facility] Start: 08-18-2023 ambulatory Gage R ANTONIETTA Facility :[facility] Start: 08-05-2023 End: 08-06-2023 ambulatory Gage R ANTONIETTA Facility:CD:[id number] Start: 07-17-2023 End: 07-18-2023 ambulatory Gail Lowe Facility:[facility] Start: 03-21-2023 End: 03-22-[address] GAIL LOWE . Facility: Start: 03-18-2023 ambulatory Gage R ANTONIETTA Facility :[facility] Start: 03-11-2023 ambulatory Gail Lowe Facility: [facility] Start: 06-05-2022 End: 06-05-[address] DOCTOR CUI Facility:[facility] Payers Date Payer Category Payer Unknown [id number] 2.16.84 [id number] 1989 Unknown [id number] 2.16.84 [id number] 1989 Unknown [id number] 2.16.8 [id number] 1989 Unknown [id number] 2.16.8 [id number] 1989 Unknown [id number] 2.16.8 [id number] 1989 Unknown [id number] 2.16.8 [id number] 1989 Unknown [id number] 2.16.8 [id number] 1989 Unknown [id number] 2.16.8 [id number] 1989 Unknown [id number] 2.16.8 [id number] 1959 Self-pay [id number] 1960 Unknown [id number] Clinical Note 07-17-2023 Note Date & Type Note Facility 07-17-2023 Note Chief Complaint consultation for rectal bleeding HPI Staff 32 year old male presents on consultation from Dr. Lowe for intermittent rectal bleeding for several years. Reports 10 year history of intermittent rectal bleeding with bowel movements. Reports this used to be sporadic but over the past several months, has increased to daily. Reports blood is bright red and on toilet tissue and in toilet water. Denies blood mixed in stool. Reports stool is soft to liquid. Denies rectal pain. Reports intermittent epigastric pain that he is unable to described. Rare nausea and vomiting. Reports until approximately one month ago, he was a daily alcohol user but this intensified rectal bleeding and epigastric pain so stopped drinking. Denies unexplained weight loss. Presented to [facility] 07/11 with mid abdominal pain, nausea, vomiting and diarrhea. CT ABD/pelvis- unremarkable. Never had colonoscopy in the past. No known family history of IBD or colon cancer. History of Present Illness 32yo male referred for several year h/o intermittent rectal bleeding; recently in ED 07/11 for mid abd pain, N/V and diarrhea; normal abd/pelvic ct scan and labs; patient reports 10 year h/o intermittent BRBPR with bms, worse over the last year; chronic loose stools, blood mixed in and with wiping; intermittent epigastric pain, ache; rare nausea; no abd operations, no previous colonoscopy; denies asa or NSAID use, no SBE prophylaxis; no fmhhx of colon cancer or IBD; smokes daily.; used to drink daily, but discontinue this because made abd pain worse. Review of Systems PHQ Score Initial Depression Screen Score: 0 ROS - Provider Constitutional: no fever, no sweats, no weight loss. Eyes: no glasses, no blurred vision, no visual loss. ENMT: no dentures, no hoarseness, no swallowing difficulties, no hearing loss, no ear infection(s), no nose bleeds. Cardiovascular: normal blood pressure, no chest pain, regular heartbeat, no heart murmur. Respiratory: no shortness of breath, no cough, no asthma, no wheezing. Gastrointestinal: no nausea, no vomiting, no diarrhea, no constipation, no blood in stool, yes change in bowel habits, yes abdominal pain, no hepatitis. Genitourinary: no kidney stones, no urine infection, no dysuria. Musculoskeletal: no pain, no weakness. Skin: no changing moles, no rash, no skin lumps. Neurologic: no seizures, no epilepsy, no headache. Psychiatric: no emotional or psychiatric problem. Heme/Lymph: no bleeding problems, no anemia, no blood clots, no transfusions. Allergy/Immunologic: no swollen lymph nodes/glands, no IV drug abuse. Other: Additional ROS info: Except as noted in the above Review of Systems and in the History of Present Illness, all other systems have been reviewed and are negative or noncontributory. Physical Exam Vitals & Measurements HR: 72(Peripheral) RR: 16 BP: 136/98 HT: 70 in HT: 177.8 cm WT: 93.4 kg WT: 205.48 lb BMI: 29.54 HEENT: normal conjunctiva, sclera clear, no scleral icterus, EOM intact, PERRLA, oral mucosa moist without lesions. Neck: trachea midline, no mass, symmetric, no thyromegaly or nodules, no adenopathy Respiratory: lungs CTA, respirations non labored. Cardiovascular: regular rate and rhythm, no murmur, no pedal edema or varicosities. Gastrointestinal: soft, non distended, no tenderness, no masses, no palpable hernias, diastasis recti no, no hepatosplenomegaly; normal bs Lymphatic: no cervical adenopathy, no supraclavicular adenopathy. Musculoskeletal: normal gait, digits and nails without infection, nodes, cyanosis, clubbing. Skin: no rashes, no lesions, no ulcers, no subcutaneous nodules, induration. Psychiatric/Neuro: oriented to time, place, person, judgement normal, affect appropriate for age, insight intact, no focal deficits. Tests: labs reviewed, x-rays reviewed, review of old records completed, Discussed surgical options, risks, and possible complications with patient. Assessment/Plan 1. Rectal bleeding (K62.5: Hemorrhage of anus and rectum) plan EGD and colonoscopy under anesthesia for further evaluation, informed consent obtained. 2. Epigastric pain (R10.13: Epigastric pain) see # 1 Follow-up No qualifying data available Problem List/Past Medical History Ongoing BMI 29.0-29.9,adult Epigastric pain Over weight Rectal bleeding Tobacco user Historical No qualifying data Procedure/Surgical History None. Medications Ventolin HFA 90 mcg/inh Aerosol-Adpt, 2 puff(s), Inhalation, q4hr, PRN Allergies No Known Allergies No Known Medication Allergies Social History Alcohol - Denies Alcohol Use, 07/17/2023 Substance Abuse - Denies Substance Abuse, 07/17/2023 Tobacco 10 or more cigarettes (1/2 pack or more)/day in last 30 days Tobacco Use:. Never Smokeless Tobacco Use:. Cigarettes, 1 per day. Started age 16.0 Years. Yes, 07/17/2023 Family History Asthma: Mother and Father. Gallbladder Ca: Mother. [facility] Comment on above: Result Comment: Elec tronically Signed By: ANTONIETTA GARDUNO, Gage Harden\Date and Time Signed: 07/17/23 16:33 EDT Summary Purpose Family History No Family History Records FoundNo Family History Records Found Advance Directives No Advanced Directives Records FoundNo Advanced Directives Records Found Additional Source Comments (unrecognized sect ion and content) No Status Records FoundNo Status Records Found INFORMATION SOURCE (unrecogn ized section and content) DATE CREATED AUTHOR 03/22/2023 [facility] DATE CREATED AUTHOR AUTHOR'S ORGANIZ ATION 09/01/2023 [facility] FOR RECORDS PERTAINING TO PATIENTS WHO ARE OR HAVE BEEN ENROLLED IN A CHEMICAL DEPENDENCY/SUBSTANCEABUSE PROGRAM, SOME INFORMATION MAY BE OMITTED. This clinical summary was aggregated from multiple sources. Caution should be exercised in using it in the provision of clinical care. This summary normalizes information from multiple sources, and as a consequence, information in this document may materially change the coding, format and clinical context of patient data. In addition, data may be omitted in some cases. CLINICAL DECISIONS SHOULD BE BASED ON THE PRIMARY CLINICAL RECORDS. [employer] [facility]. provides no warranty or guarantee of the accuracy or completeness of information in this document.
== END 2024-10-13 11:21 | disposition home or self-care (01) ==
PROVIDERS: PCP Family Medicine; Visit Provider Family Medicine
DX: M79.641 Pain in right hand (principal)
CPT/HCPCS: 73110; 73130